=== PATIENT | female | born 1995 | race Caucasian/White ===

== ENCOUNTER 2021-11-24 12:45 | Emergency (ER) | payer OTHER ==
--- NOTE | 2021-11-24 13:07 | ED Physician Documentation ---
PD HPI FEMALE - Stated complaint Stated Complaint: SPOTTING/BLEEDING - Chief complaint Chief Complaint: Abd Pain - History obtained from History obtained from: Patient - History of Present Illness Timing - onset: How many days ago (5) Timing - duration: Days (5) Timing - details: Gradual onset, Still present Associated symptoms: Vaginal bleeding Contributing factors: OB-LINE LOCATOR History: G (1), P (0) Similar symptoms before: Has not had sx before Recently seen: Clinic - Additional information Additional information: 26-year-old Ilan Jo felt that she had some swelling to her breast went into see her doctor and was . She had a positive test 10 days ago. She has developed vaginal spotting with passing of some clots that has been present for about 1 week. She feels that the breast tenderness she had has receded. Review of Systems Constitutional: denies: Fever Ears: denies: Ear pain Nose: denies: Congestion Throat: denies: Sore throat Cardiac: denies: Palpitations Respiratory: reports: Cough. denies: Dyspnea GI: denies: Vomiting : denies: Dysuria Skin: denies: Rash Musculoskeletal: denies: Neck pain, Back pain, Extremity pain PD PAST MEDICAL HISTORY - Allergies Allergies/Adverse Reactions: Allergies Allergy/AdvReac Type Severity Reaction Status Date / Time No Known Drug Allergies Allergy Verified 11/24/21 12:46 PD ED PE NORMAL - Vitals Vital signs reviewed: Yes (hypertensive ) - General General: Alert and oriented X 3, No acute distress, Well developed/nourished - HEENT HEENT: Atraumatic, PERRL, EOMI - Respiratory Respiratory: No respiratory distress - Abdomen Abdomen: Soft, Non tender - Back Back: No CVA TTP, No spinal TTP - Derm Derm: Normal color, Warm and dry - Extremities Extremities: No deformity, No edema - Neuro Neuro: Alert and oriented X 3, wiener packer 2-12 intact, No motor deficit, No sensory deficit, Normal speech Eye Opening: Spontaneous Motor: Obeys Commands Verbal: Oriented GCS Score: 15 - Psych Psych: Normal mood, Normal affect Results - Vitals Vitals: Vital Signs - 24 hr 11/24/21 11/24/21 12:47 15:05 Temperature 36.5 C 36.5 C Heart Rate 86 84 Respiratory 16 16 Rate Blood Pressure 130/86 H 128/84 H O2 Saturation 100 100 Oxygen O2 Source Room air - Labs Labs: Laboratory Tests 11/24/21 11/24/21 13:14 13:14 HCG, Quant 49210.00 Urine Color RED/BLOODY Urine Clarity BLOODY Urine pH Ur Specific [place] Urine Protein Urine Glucose (UA) NEGATIVE Urine Ketones NEGATIVE Urine Occult Blood LARGE H Urine Nitrite Urine Bilirubin NEGATIVE Urine Urobilinogen Ur Leukocyte Esterase Urine RBC TNTC H Urine WBC 4-5 Ur Squamous Epith Cells RARE Squamous Urine Bacteria Rare Ur Microscopic Review INDICATED Urine Culture Comments NOT INDICATED - Rads (name of study) pelvic ultrasound Radiology: Prelim report reviewed (Imp:There is a 6-week 1 day intrauterine gestation with an abnormal appearing, and an abnormally positioned gestational sac. Findings are suspicious but nondiagnostic for nonviable . Follow-up to confirm viability in 7 to 10 days is recommended. Closed maternal cervix. ), Final report received ( Right ovarian corpus luteum. Preliminary results given to the child and family services specialist to the ordering provider), EMP read indepedently, See rad report Procedures - Bedside sono Bedside sono by EMP: With use of bedside ultrasound the pelvis is imaged I am not able to identify an intrauterine gestational sac. PD MEDICAL DECISION MAKING - ED course Complexity details: reviewed results, re-evaluated patient, considered differential, d/w patient ED course: 26-year-old An Jo has had bleeding for the past week and is somewhere in the vicinity of 6 weeks . She has a quant over 19686 and the ultrasound is inconclusive about demise. It is very suggestive of a miscarriage. I have recommended the patient have a second quantitative hcG in 2 days time to confirm. Departure - Departure Disposition: 01 Home, Self Care Clinical Impression: Incomplete miscarriage Condition: Stable Instructions: ED Miscarriage Incom Follow-Up: GILMAR LING ARNP [Primary Care Provider] - Comments: An, today it looks like the has miscarried. There is a gestational sac of the appropriate size inside the uterus but the fetus does not appear viable. You will need to have a repeat hCG done in about 2 days time to confirm this. Talk to your provider about options. Discharge Date/Time: 11/24/21 15:05
[2021-11-24 13:28] LABS: BILIRUBIN,URINE NEGATIVE (NEGATIVE); GLUCOSE, URINE (UA) NEGATIVE (NEGATIVE); KETONES,URINE (UA) NEGATIVE (NEGATIVE); OCCULT BLOOD,URINE LARGE (NEGATIVE)
[2021-11-24 13:30] LABS: CLARITY,URINE BLOODY (CLEAR)
[2021-11-24 13:31] LABS: BACTERIA,URINE Rare /HPF (None Seen); RBC,URINE TNTC /HPF (0-5); SQUAMOUS EPITHELIAL CELL,UR RARE Squamous (<= Few)
[2021-11-24 15:06] VITALS: BP 128/84
--- NOTE | 2021-11-24 16:34 | Ultrasound Report ---
PROCEDURE: OB First Trimester INDICATIONS: early bleeding OUTSIDE/PRIOR DATING DATA: Last menstrual period (LMP): 09/30/2021. LMP-based estimated date of delivery (DEISY): 07/07/2022. First dating scan (date and location): Current study. Estimated date of delivery (DEISY) from first dating scan: Not applicable. TECHNIQUE: Real-time scanning was performed of the fetus and maternal pelvic organs, with image documentation. COMPARISON: None FINDINGS: Embryo: Intrauterine gestational sac is present, teardrop in shape, low within the endometrial canal . Mean gestational sac diameter is 1.3 cm. Products of conception are seen, but there is no distinct yolk sac. pole has a crown-rump length of 0.60 cm corresponding to a 6 week 3 day gestation. Th ere is no detectable cardiac activity. Measurement variability in dating: +/- 4 weeks by LMP, +/- 7 days by mean sac diameter (use before 6 weeks gestation if crown-rump length not able to be measured), +/- 5 days by crown-rump length (6-12 weeks gestation). Maternal organs: The maternal cervix is closed. The left ovary has a normal follicular appearance. Th e right ovary contains a dominant follicle. There is no adnexal mass or free pelvic fluid. IMPRESSION: 1. There is a 6 week 1 day intrauterine gestation with an abnormal appearing, and an abnormally posit ioned gestational sac. Findings are suspicious but nondiagnostic for nonviable . Follow-up t o confirm viability in 7-10 days is recommended. 2. Closed maternal cervix. 3. Right ovarian corpus luteum. 4. Preliminary results given by the therapy manager to the ordering provider. Reviewed by: Milagros Darnell MD on 11/24/2021 4:33 PM PDT Approved by: Milagros Darnell MD on 11/24/2021 4:33 PM PDT Station ID: [id number]
--- NOTE | 2021-11-24 16:35 | Ultrasound Report ---
PROCEDURE: OB Transvaginal PROCEDURE: OB First Trimester INDICATIONS: early bleeding OUTSIDE/PRIOR DATING DATA: Last menstrual period (LMP): 09/30/2021. LMP-based estimated date of delivery (DEISY): 07/07/2022. First dating scan (date and location): Current study. Estimated date of delivery (DEISY) from first dating scan: Not applicable. TECHNIQUE: Real-time scanning was performed of the fetus and maternal pelvic organs, with image documentation. COMPARISON: None FINDINGS: Embryo: Intrauterine gestational sac is present, teardrop in shape, low within the endometrial canal . Mean gestational sac diameter is 1.3 cm. Products of conception are seen, but there is no distinct yolk sac. pole has a crown-rump length of 0.60 cm corresponding to a 6 week 3 day gestation. Th ere is no detectable cardiac activity. Measurement variability in dating: +/- 4 weeks by LMP, +/- 7 days by mean sac diameter (use before 6 weeks gestation if crown-rump length not able to be measured), +/- 5 days by crown-rump length (6-12 weeks gestation). Maternal organs: The maternal cervix is closed. The left ovary has a normal follicular appearance. Th e right ovary contains a dominant follicle. There is no adnexal mass or free pelvic fluid. IMPRESSION: 1. There is a 6 week 1 day intrauterine gestation with an abnormal appearing, and an abnormally posit ioned gestational sac. Findings are suspicious but nondiagnostic for nonviable . Follow-up t o confirm viability in 7-10 days is recommended. 2. Closed maternal cervix. 3. Right ovarian corpus luteum. 4. Preliminary results given by the laborer sawmill to the ordering provider. Reviewed by: Milagros Darnell MD on 11/24/2021 4:34 PM PDT Approved by: Milagros Darnell MD on 11/24/2021 4:34 PM PDT Station ID: [id number]
== END 2021-11-24 15:05 | disposition home or self-care (01) ==
LOC: ED 12:45
DX: O03.4 Incomplete spontaneous abortion without complication (principal)
CPT/HCPCS: 36415; 81001; 81003; 84702; 87086; 99282; 99284

== ENCOUNTER 2022-10-31 13:22 | Outpatient (CLI) | payer OTHER ==
--- NOTE | 2022-10-31 13:57 | XRAY Report ---
PROCEDURE: Elbow 2 View RT INDICATIONS: PAIN IN RIGHT ELBOW TECHNIQUE: 2 views of the elbow were acquired. COMPARISON: None. FINDINGS: Bones: No fractures or dislocations. No suspicious bony lesions. Soft tissues: There is linear soft tissue calcification noted associated with the lateral humeral con dyle IMPRESSION: Soft tissue calcification adjacent lateral humeral condyle may be sequela of prior trauma or chronic inflammation in the proper clinical setting Reviewed by: Quentin Eng MD on 10/31/2022 12:55 PM AKDT Approved by: Quentin Eng MD on 10/31/2022 12:55 PM AKDT Station ID: [id number]
== END 2022-10-31 13:23 | disposition home or self-care (01) ==
LOC: DI 13:22
PROVIDERS: ATTEND Nurse Practitioner
DX: M25.521 Pain in right elbow (principal)